=== PATIENT | female | born 1980 | race Two or more races ===

== ENCOUNTER → 2024-08-25 | Outpatient (CLI) | payer OTHER, SELFPAY ==
--- NOTE | 2024-08-25 15:45 | XR_ITS ---
Examination: Screening digital mammography, bilateral Computer aided detection 3-D breast Tomosynthesis, bilateral Date and time of exam: 08/25/2024, 3:42 PM Comparisons: Baseline exam Indications: Screening Technique: Nonmagnified MLO, CC views of the breasts to been obtained, reconstructed from 3-D Tomosynthesis images. R2 computer aided detection program utilized for evaluation of suspicious masses and/or abnormal calcifications. 3-D Tomosynthesis images obtained. Technologist: Findings: The breasts are heterogeneously dense, which may obscure small masses. Focal asymmetry right posterior upper inner quadrant. Otherwise, no evidence of abnormal masses or suspicious calcifications. Impression: Right focal asymmetry as above. Spot compression views and possible ultrasound evaluation recommended. BI-RADS category 0: Incomplete assessment; need additional imaging evaluation
== END | disposition home or self-care (01) ==
LOC: CDIM 15:32
PROVIDERS: Referring Provider Internal Medicine; Visit Provider Internal Medicine
DX: Z12.31 Encounter for screening mammogram for malignant neoplasm of breast (principal); N64.89 Other specified disorders of breast
CPT/HCPCS: 77063; 77067

== ENCOUNTER → 2024-09-28 | Outpatient (CLI) | payer OTHER, SELFPAY ==
--- NOTE | 2024-09-28 10:47 | XR_ITS ---
Examination: Breast ultrasound, unilateral, left complete Date and time of exam: September 28, 2024 1104 hours INDICATIONS: Left breast of focal asymmetry upper inner quadrant on mammogram August 25, 2024 Technique: Real-time esparza scale ultrasonographic imaging performed left breast including all 4 quadrants as well as nipple retroareolar and axillary region. Findings: Multiple benign cysts 2:00 nodule circumscribed 4 x 3 mm 6:00 nodule lobular margins 8 x 7 mm 11:00 nodule circumscribed 6 x 7 mm IMPRESSION: BI-RADS Category 3: Probably benign findings One additional 6 month left breast sonogram follow-up is needed to document stability of nodules described above
== END | disposition home or self-care (01) ==
LOC: CDIM 09:03
PROVIDERS: PCP Internal Medicine; Referring Provider Internal Medicine; Visit Provider Internal Medicine
DX: N63.25 Unspecified lump in the left breast, overlapping quadrants (principal); N63.21 Unspecified lump in the left breast, upper outer quadrant; N63.22 Unspecified lump in the left breast, upper inner quadrant
CPT/HCPCS: 76641

== ENCOUNTER → 2024-10-01 | Outpatient (CLI) | payer OTHER, SELFPAY ==
--- NOTE | 2024-10-01 | XR_ITS ---
Examination: Diagnostic digital mammography, unilateral, left Computer aided detection 3-D breast Tomosynthesis, unilateral Date and time of exam: October 01, 2024 1156 hours INDICATIONS: Mammogram August 25, 2024 left focal asymmetry upper inner left breast Technique: Nonmagnified MLO, CC views of the left breast have been obtained, reconstructed from 3-D Tomosynthesis images. R2 computer aided detection program utilized for evaluation of suspicious masses and/or abnormal calcifications. 3-D Tomosynthesis images obtained. Findings: The breast is heterogeneously dense, which may obscure small masses Focal asymmetry remains upper inner left breast, probably benign glandular tissue Impression: BI-RADS category 3: Probably benign findings One additional 6 month left mammogram follow-up is needed
== END | disposition home or self-care (01) ==
LOC: CDIM 11:43
PROVIDERS: Referring Provider Internal Medicine; Visit Provider Internal Medicine
DX: R92.332 Mammographic heterogeneous density, left breast (principal)
CPT/HCPCS: 77061; 77065; G0279

== ENCOUNTER 2025-04-05 07:38 | Emergency (ER) | payer OTHER, SELFPAY ==
[2025-04-05 07:38] VITALS: BMI 23.3
[2025-04-05 07:46] VITALS: BP 139/78; PULSE 84; RESP 16; TEMP 36.6; O2SAT 100
--- NOTE | 2025-04-05 07:55 | EDNOTE_ITS ---
ED Headache RME/HPI General Chief Complaint: Extremity Problem,Nontraumatic Stated Complaint: BILATERAL HAND NUMBNESS Time Seen by Provider: 04/05/25 07:55 Arrival date/time: 04/05/25 07:38 Related Data Previous Rx's ?Medication ?Instructions ?Recorded cephalexin 500 mg capsule (Keflex) 1 cap PO TID PRN DA TAWANNA #15 caps 02/08/13 alprazolam 0.5 mg tablet (Xanax) 0.5 mg PO BID PRN anx iety #20 tabs 04/05/25 Allergies Allergy/AdvReac Type Severity Reaction Status Date / Time No Known Allergies Allergy Verified 04/05/25 07:42 Course Quality Measures none Orders Category Date Time Status CT cervical spine wo con Stat Exams 04/05/25 07:[address] head/brain wo con Stat Exams 04/05/25 07:56 Completed ALPRazoLAM [Xanax] Med 04/05/25 07:56 Discontinued 0.5 mg PO X1 ONE Vital Signs Vital signs: Vital Signs Temperature 97.8 F 04/05/25 07:46 Pulse Rate 84 04/05/25 07:46 Respiratory Rate 16 04/05/25 07:46 Blood Pressure 139/78 H 04/05/25 07:46 Pulse Oximetry (%) 100 04/05/25 07:46 Oxygen Delivery Method Room Air 04/05/25 07:46 Headache MDM Narrative MDM Narrative:: This section includes all my notes and documentations, including HPI, PE, and ED course. Ricardo Funes MD HPI: 44-year-old female here with a couple week history of migraine headaches with numbness and tingling in the hands and feet. Currently, minimal headache. Concerned about the numbness and tingling. No other complaints. ROS: All negative except as documented in HPI. Physical Exam: General: Alert and oriented. No acute distress. Eyes: Conjunctivae and lids clear. EOMI. PERRL. ENT: No nasal congestion. Pharynx normal. Tympanic membrane normal bilaterally. Neck: Supple. No carotid bruit. No JVD. Heart: RRR. Lungs: No respiratory distress. Good air movement. No rhonchi, wheezing, rales. Abdomen: Soft and nontender. Legs: No clubbing, cyanosis, edema. Skin: Warm and dry. Neuro: Alert and oriented X 3. Cranial Nerves II-XII grossly intact. No peripheral motor deficits. I reviewed all diagnostic test results: My review of the head and neck CT reports is no acute findings. At this point, diagnoses include: Migraine headaches Peripheral neuropathy Treatment here included: Xanax 0.5 mg She felt much better. Recommended more outpatient workup. Based on my best medical judgment, made decision no further evaluation or treatment indicated at this time. Patient understands and agrees to the discharge instructions customized and printed, see below. Discharge Instructions from Dr. Funes printed for you: 1. Fortunately, there is no evidence of stroke or brain tumor. And there is no severe pinched nerve(s) in your neck. 2. If Xanax is helping, it is possible your symptoms may be due to underlying stress/nerves/anxiety. Take Xanax as needed. Avoid taking more than 2-3 times per week, to avoid dependence. 3. See a private doctor on 04/06/2025 for further care. Ask for more care not available here in the ER (such as nerve conduction studies and referrals to see specialists, such as neurologist), to make sure there is no serious condition. 4. Seek immediate medical care with worsening or with any concerns. Ricardo Funes MD Patient data External records reviewed:: None Clinical information provided by:: patient Social determinants that could affect healthcare access:: none Patient has the following chronic illnesses:: Migraine headache How is presenting disease/condition affected by chronic disease/condition?: exacerbated by Evaluation data The following diagnostics were reviewed and interpreted by me:: radiology exam(s) Lab and/or radiology exams considered but not ordered:: None Interpretation Summary: I reviewed all diagnostic test results: My review of the head and neck CT reports is no acute findings. Medications / Prescriptions Medications or Prescriptions considered but not ordered:: None Medication administrations:: Medication Administration History Discontinued Medications Alprazolam (Alprazolam 0.25 Mg Tablet) 0.5 mg PO X1 ONE Stop: 04/05/25 07:57 Last Admin: 04/05/25 08:13 Dose: 0.5 mg Documented By: ARF Xanax 0.5 mg Consultations Consultation(s) initiated? (list below): No Diagnosis Differential diagnosis headache: migraine, tension headache, subarachnoid hemorrhage and sinusitis Most likely diagnosis given after review of the tests above:: Migraine Peripheral neuropathy Admission Indicated Admission indicated?: not indicated Explain why admission is indicated or not indicated:: With significant improvement and no condition needing emergent intervention, there was no indication for admission. Admission Request Was there a request for admission?: No Disposition Plan Disposition Plan: Discharge Discharge Attestation Discharge Attestation: The patient and all family members were given an opportunity to ask questions and understood the discharge instructions. Discharge instructions specifically effects, indications for sooner follow up or return to the emergency department, and the expected course of current diagnosis. Patient condition: Stable Discharge Plan Plan Patient Disposition: HOME (Self Care) Prescriptions/Referrals Prescriptions/Med Rec: New alprazolam [Xanax] 0.5 mg tablet 0.5 mg PO BID PRN (Reason: anxiety) Qty: 20 0RF No Action cephalexin [Keflex] 500 MG capsule 1 cap PO TID PRN (Reason: DAILY) Qty: 15 0RF Referrals: Katie Hogan MD [Primary Care Provider, Internal Medicine] - In 1 week Problem List Clinical Impression: Tingling of both upper extremities Patient/Caregiver Discharge Instructions Discharge Activity: activity as tolerated Education Materials: ED Paraesthesias Additional Instructions: Discharge Instructions from Dr. Funes printed for you: 1. Fortunately, there is no evidence of stroke or brain tumor. And there is no severe pinched nerve(s) in your neck. 2. If Xanax is helping, it is possible your symptoms may be due to underlying stress/nerves/anxiety. Take Xanax as needed. Avoid taking more than 2-3 times per week, to avoid dependence. 3. See a private doctor on 04/06/2025 for further care. Ask for more care not available here in the ER (such as nerve conduction studies and referrals to see specialists, such as neurologist), to make sure there is no serious condition. 4. Seek immediate medical care with worsening or with any concerns. Print Language: Georgian Stand Alone Forms: Jo Award Info., Patient Portal Info Letter
--- NOTE | 2025-04-05 07:56 | XR_ITS ---
Examination: CT brain head without contrast. 2-D sagittal coronal reconstructions Date and time of exam: March, 0819 hours INDICATIONS: Onset generalized head pain and weakness 2 weeks CTDI: vol (mGy): 46.3 DLP: (mGycm): 875 Technique: Multiple CT axial sections of the brain have been obtained, 5 mm slice thickness. Contrast has not been administered. 2-D sagittal, coronal reconstructions have been obtained Low dose protocols were performed. One or more of the following dose reduction techniques were used; automated exposure control, adjustment of the mA and/or KV according to patient size, use of iterative reconstruction technique. Findings: No significant ventricular enlargement. Intra-axial or extra-axial hemorrhage density is not seen. No mass effect or midline shift Basal cisterns are not remarkable. Fourth ventricle is midline. Cranial vault intact. Significant chronic ethmoid sinusitis Impression: Negative for acute hemorrhage, mass effect or midline shift If symptoms persist, consider brain MRI/MRA stroke protocol follow-up
--- NOTE | 2025-04-05 07:56 | XR_ITS ---
Examination: CT cervical spine without contrast 2-D sagittal reconstructions 2-D coronal reconstructions 3-D reconstructions. Exam date and time: April 05, 2025, 0819 hours INDICATIONS: Neck pain radiating to the arms with paresthesias and numbness in the arms 2 weeks CTDI:vol (mGy) 15.6 DLP: (mGycm) 362 Technique: Multiple 2 mm axial sections of the cervical spine have been obtained. The coronal and sagittal reconstructions have been obtained. 3-D reconstructions have been obtained. Low dose protocols were performed. One or more of the following dose reduction techniques were used; automated exposure control, adjustment of the mA and/or KV according to patient size, use of iterative reconstruction technique. Findings: Axial sections demonstrate intact base of the skull. C1 exhibit satisfactory relationship to the odontoid. No acute cervical vertebral body fracture seen. Alignment posterior spinous processes satisfactory. Impression: No acute cervical fracture. MRI cervical spine without contrast follow-up would be preferable in assessing for acquired soft tissue spinal stenosis
== END 2025-04-05 10:09 | disposition home or self-care (01) ==
PROVIDERS: Emergency Provider Emergency Medicine; PCP Internal Medicine
DX: R20.2 Paresthesia of skin (principal); M54.2 Cervicalgia; R51.9 Headache, unspecified; R53.1 Weakness
CPT/HCPCS: 70450; 72125; 99282; A9270

== ENCOUNTER → 2025-04-06 | Outpatient (CLI) | payer OTHER, SELFPAY ==
[2025-04-06 10:40] LABS: Collection Type, Urine Clean Catch
[2025-04-06 11:11] LABS: Bacteria,Urine 2+; Bilirubin,Urine Negative (Negative); Blood,Urine Negative (Negative); Color,Urine Yellow (Lt Yel-Yel); Culture Indicated,Urine Contaminated; Glucose, Urine Negative (Negative); Ketones,Urine Negative (Negative); Leukocyte Esterase,Urine Positive (Negative); Nitrite,Urine Negative (Negative); PH,Urine 5.5 (5.0-7.0); Protein,Urine Trace (Neg - Trace); RBC,Urine 8 /hpf (0-3); Specific Gravity,Urine 1.025 (1.001-1.035); Squamous Epithelial Cell,Urine 16 /hpf (0-5); Urobilinogen,Urine Negative mg/dL (0.0-1.0); WBC,Urine 49 /hpf (0-5)
[2025-04-06 11:13] LABS: Clarity,Urine Hazy (Clear/Hazy)
[2025-04-06 11:15] LABS: Alanine Aminotransferase 16 U/L (10-49); Albumin, Serum 4.9 gm/dL (3.5-5.0); Albumin/Globulin Ratio 2.3 (1.2-2.2); Alkaline Phosphatase 84 U/L (46-116); Anion Gap 11 (7-16); Aspartate Amino Transferase 20 U/L (0-34); BUN/Creatinine Ratio 10 Ratio (12-20); Bilirubin,Total 0.6 mg/dL (0.3-1.2); Blood Urea Nitrogen 7 mg/dL (9-23); Calcium 9.3 mg/dL (8.3-10.6); Calcium (Corrected) 9.3 mg/dL (8.5-10.1); Carbon Dioxide 22.3 mMol/L (20.0-31.0); Cardiac Risk Estimate 5.3 RATIO (3.7-5.6); Chloride 108 mMol/L (98-107); Cholesterol 216 mg/dL (132-200); Creatinine (Component) 0.7 mg/dL (0.6-1.3); Free T4 (Free Thyroxine) 1.13 ng/dL (0.89-1.76); Globulin 2.1 gm/dL (2.3-3.5); Glucose 103 mg/dL (74-106); HDL Cholesterol 41 mg/dL (40-60); LDL Cholesterol,Calculated 134 mg/dL (0-130); Osmolality,Calculated 279 (275-295); Potassium 4.0 mMol/L (3.4-5.1); Sodium 141 mMol/L (136-145); Thyroid Stimulating Hormone 4.88 uIU/mL (0.55-4.78); Total Protein 7.0 gm/dL (5.7-8.2); Triglycerides 207 mg/dL (30-150); eGFR > 60 See Note
[2025-04-06 11:17] LABS: Ferritin 4 ng/mL (7.3-270.7); Folate 11.15 ng/mL (>5.38); Iron 18 mcg/dL (50-170); Percent Iron Saturation 5 % (20-55); Total Iron Binding Capacity 333 mcg/dL (250-425); Unsaturated Iron Binding 315 (225-295); Vitamin B12 304 pg/mL (211-911)
[2025-04-06 11:20] LABS: Basophils # (Auto) 0.1 Thou/mm3 (0.0-0.2); Basophils % (Auto) 1 % (0-2.5); Eosinophils # (Auto) 0.2 Thou/mm3 (0.0-0.5); Eosinophils % (Auto) 4 % (0-10); Hematocrit 35.6 % (36.0-46.0); Hemoglobin 10.6 g/dL (12.0-16.0); Immature Granulocytes Auto 0.01 Thou/mm3 (0.00-0.00); Lymphocytes # (Auto) 1.3 Thou/mm3 (1.0-4.8); Lymphocytes % (Auto) 24 % (10-50); Mean Corpuscular HGB Conc 29.8 g/dl (31.0-37.0); Mean Corpuscular Hemoglobin 22.6 pg (25.0-35.0); Mean Corpuscular Volume 76 fL (80-100); Monocytes # (Auto) 0.4 Thou/mm3 (0.0-0.8); Monocytes % (Auto) 7 % (0-12); Neutrophils # (Auto) 3.4 Thou/mm3 (1.8-7.7); Neutrophils % (Auto) 65 % (37-80); Nucleated Red Blood Cell # 0.00 Thou/mm3 (0.00-0.00); Nucleated Red Blood Cell % 0 /100 WBC (0); Platelet Count 326 Thou/mm3 (140-440); RDW Standard Deviation 44.8 fL (36.4-46.3); Red Blood Count 4.69 Miln/mm3 (4.00-5.20); White Blood Count 5.3 Thou/mm3 (3.6-11.0)
== END | disposition home or self-care (01) ==
LOC: COPL 09:56
PROVIDERS: PCP Internal Medicine; Referring Provider Internal Medicine; Visit Provider Internal Medicine
DX: D50.0 Iron deficiency anemia secondary to blood loss (chronic) (principal); G43.919 Migraine, unspecified, intractable, without status migrainosus
CPT/HCPCS: 36415; 80053; 80061; 81001; 82607; 82728; 82746; 83540; 83550; 84439; 84443; 85025